=== PATIENT | female | born 1965 | race Caucasian/White ===

== ENCOUNTER → 2017-10-01 | Outpatient (CLI) | payer BC | LOC: M WHC 09:54 | DX: Z12.31 Encounter for screening mammogram for malignant neoplasm of breast (principal) | CPT/HCPCS: 77067 ==

== ENCOUNTER → 2018-10-20 | Outpatient (CLI) | payer BC ==
--- NOTE | 2018-10-20 12:41 | REPMRS ---
Patient History The patient states she had a clinical breast exam in 10/2018. Patient is postmenopausal. No known family history of cancer. No Hormone Replacement Therapy 3D TOMOSYNTHESIS WAS PERFORMED. Digital Woman Screen Mammo: October 20, 2018 - Exam #: [id number] Bilateral CC and MLO view(s) were taken. Technologist: Kaya Irving, Technologist Prior study comparison: October 01, 2017, digital woman screen mammo performed at [facility]. August 19, 2016, digital woman screen mammo performed at [facility] to [facility]. FINDINGS: The breast tissue is heterogeneously dense. This may lower the sensitivity of mammography. There has been no change in the appearance of the mammogram from the prior studies. There is a moderate amount of residual fibroglandular tissue which is fairly symmetric. There is no interval development of dominant mass, areas of architectural distortion, or clustered microcalcification typical of malignancy. Assessment: BI-RADS/ACR category 1 mammogram. Negative Mammogram. Recommendation Routine screening mammogram in 1 year (for women over age 40). This mammogram was interpreted with the aid of an FDA-approved computer-aided dectection system. Electronically Signed By: Sandro Rubin MD 10/20/18 [id number]
== END ==
LOC: M WHC 11:42
PROVIDERS: ATTEND Nurse Practitioner Family
DX: Z12.31 Encounter for screening mammogram for malignant neoplasm of breast (principal); Z78.0 Asymptomatic menopausal state

== ENCOUNTER → 2018-10-20 | Outpatient (REF) | payer BC ==
[2018-10-22 18:42] LABS: HPV HYBRID CAPTURE II Negative (Negative)
== END ==
LOC: M SFHCWAGY 11:55
PROVIDERS: ATTEND Nurse Practitioner Family
DX: Z12.4 Encounter for screening for malignant neoplasm of cervix (principal)
CPT/HCPCS: 87624; G0123

== ENCOUNTER → 2019-10-20 | Outpatient (CLI) | payer BC ==
--- NOTE | 2019-10-20 14:40 | REPMRS ---
Patient History The patient states she had a clinical breast exam in 2019. No known family history of cancer. No Hormone Replacement Therapy Digital Woman Screen Mammo: October 20, 2019 - Exam #: [id number] Bilateral CC and MLO view(s) were taken. Technologist: Edwige Fischer, Technologist Prior study comparison: October 20, 2018, bilateral digital woman screen mammo performed at [facility]. October 01, 2017, digital woman screen mammo performed at [facility]. August 19, 2016, digital woman screen mammo performed at [facility]. FINDINGS: The breast tissue is heterogeneously dense. This may lower the sensitivity of mammography. There is a moderate amount of heterogeneously dense fibroglandular tissue which is fairly symmetric. There is no interval development of dominant mass, architectural distortion, or grouped microcalcification typical of malignancy. There has been no change in the appearance of the mammogram from the prior studies. 3-D tomosynthesis shows no additional findings. Assessment: BI-RADS/ACR category 1 mammogram. Negative Mammogram. Recommendation Routine screening mammogram of both breasts in 1 year (for women over age 40). This patient's Lifetime Breast Cancer RIsk is estimated at 8.6 %. This mammogram was interpreted with the aid of an FDA-approved computer-aided dectection system. Electronically Signed By: David Alberto MD 10/20/19 0695
== END ==
LOC: M WHC 10:34
PROVIDERS: ATTEND Nurse Practitioner Family
DX: Z12.31 Encounter for screening mammogram for malignant neoplasm of breast (principal)

== ENCOUNTER → 2020-10-20 | Outpatient (CLI) | payer BC ==
--- NOTE | 2020-10-20 13:06 | REP ---
INDICATION: BREAST LUMP; N63.20 LT BREAST LUMP. Palpable lump in the upper-outer quadrant of the left breast is covered on clinician breast exam. Breast cancer screening. COMPARISON: Mammography October 20, 2019, October 20, 2018, and October 01, 2017. TECHNIQUE: Bilateral CC and MLO) view(s) were taken. A skin marker is affixed to the skin at the site of the palpable lump in the left breast for left-sided views. Magnified focal spot-compression CC mL and MLO views of the left breast are obtained as well. 3D tomography is carried out. Targeted left breast sonography is performed. FINDINGS: Scattered fibroglandular elements are seen bilaterally. No suspicious or dominant density is seen. No microcalcification or architectural distortion is seen. No worrisome skin change is appreciated. 3-D tomosynthesis shows no additional finding. No abnormality is noted at the site of the palpable lump in the left breast or elsewhere on either side on today's mammography. The Volpara volumetric breast density pattern is B. Targeted sonography: Targeted sonographic evaluation of the left breast is performed 1:00 to 2:00 in the region the palpable lump. Heterogeneous fibroglandular background echotexture is seen. No cyst, mass, acoustic shadowing or architectural distortion is seen by ultrasound.. IMPRESSION: BIRADS/ACR category 1 negative mammographic and left breast sonographic findings. This patient's Tyrer-Cuzick lifetime breast cancer risk assessment score is 8.4%. This mammogram was interpreted with the aid of an FDA-approved computer-aided detection system. The patient states she had a clinical breast exam in October of 2020. The patient letter being requested is M2. RECOMMENDATION: Clinical follow-up is advised. This negative report should not dissuade 1 from biopsy of a palpable lesion depending on his clinical characteristics. Repeat screening mammography recommended 1 year (for women over 40). <Electronically signed by David Alberto > 10/20/20 [id number]
== END ==
LOC: M WHC 10:33
PROVIDERS: ATTEND Nurse Practitioner Family
DX: N63.21 Unspecified lump in the left breast, upper outer quadrant (principal)
CPT/HCPCS: 76642; 77066; G0279

== ENCOUNTER → 2020-12-27 | Outpatient (CLI) | payer BC ==
[~2020-12-27] MED LIST: LEVO100T5 PO
[2020-12-27 13:59] VITALS: BP 140/86
--- NOTE | 2020-12-27 14:09 | ROOPDOC ---
[facility] Report Of Operation Report of Operation DATE OF PROCEDURE: 12/27/20 DIAGNOSIS: left breast palpable mass PROCEDURE: palpation and ultrasound guided biopsy of the left breast palpable mass with clip placement SURGEON: Juan Villa BLOOD LOSS: minimal COMPLICATIONS: none Lidocaine 1% LOT [id number] Expiration 08/2021 Sodium Bicarbonate 8.4% LOT [id number] Expiration 10/2021 Hydromark clip LOT [id number] Expiration 08/2023 SHAPE : 4 Bx device: BARD [id number] x10 cm LOT [id number] Expiration 10/2021 Informed consent was obtained. The most common risk and possible complications including bleeding, hematoma, bruising, infection, injury to surrounding structures were explained to the patient and the patient expressed understanding. Patient was placed on the bed in the supine position. Appropriate time out was done stating patients name, date of , and the procedure to be performed. Palpation was used to locate the mass at 2:00 3 CFN. No clear sonographic correlate was seen on sonography of this area. The left breast was prepped and draped in the usual fashion. The ultrasound was used to assure safe biopsy and to prevent injury to the lung. Plain Lidocaine 1% and 8.4% sodium bicarbonate 10:1 mix was used to anesthetize the skin, the biopsy site and tissues along the anticipated biopsy tract. Small skin incision was made with blade number 11. BARD Marquee 14G cannula with introducer ([id number]) was inserted through the incision and advanced under the ultrasound guidance to position immediately adjacent to the palpable lesion. Next, the introducer was removed and BARD Marquee 14G biopsy device was places in the cannula. Pre-biopsy imaging, and post-biopsy imaging were captured. Five good core biopsies were taken at various levels of the lesion. Specimen was placed in formaldehyde, labeled with appropriate biopsy site and patients name, and sent to pathology for evaluation. Next, the biopsy device was withdrawn and a clip introducer was inserted into the biopsy site via the cannula. SHAPE 4 Hydromark clip was deployed under sonographic guidance. Post-clip placement image was captured. Manual pressure over the biopsy cavity and tract was held after the clip introducer was withdrawn. No bleeding was noted upon removal of the pressure. Post-biopsy mammogram of the left breast was obtained and showed clip in expected position. Postprocedural dressing was placed. Patient tolerated procedure well. Discharge instructions were discussed with the patient and the patient expressed understanding. JUAN VILLA DO Dec 27, 2020 14:09
--- NOTE | 2020-12-27 15:00 | REP ---
INDICATION: N63.20 LT BREAST MASS,POST US GUIDED BIOPSY. Patient is status post ultrasound directed needle biopsy of a palpable lesion. There was no mammographic or sonographic target identified. COMPARISON: Comparison mammography October 20, 2020. TECHNIQUE: Craniocaudal and mediolateral views of the left breast are obtained after clip placement. This mammogram was interpreted with the aid of an FDA-approved computer-aided detection system. FINDINGS: CC and mL views of the left breast demonstrate a needle biopsy marker clip in the fairly superficial aspect middle 3rd of the left breast upper outer quadrant. There is some adjacent post I biopsy edema. No hematoma. IMPRESSION: Marker clip is seen in place in the upper-outer quadrant of the left breast. . RECOMMENDATION: None. <Electronically signed by David Alberto > 12/27/20 [id number]
--- NOTE | 2020-12-27 15:40 | REP ---
INDICATION: N63.20 LT BREAST MASS,US GUIDED BIOPSY. COMPARISON: None. TECHNIQUE: Sonographic guidance. FINDINGS: Sonographic guidance is provided to Dr. George performed ultrasound guided/palpation guided lump biopsy with marker clip placement. IMPRESSION: Procedural imaging. <Electronically signed by David Alberto > 12/27/20 [id number]
== END ==
LOC: M WHCPRO 08:04
PROVIDERS: ATTEND Surgery
DX: N63.20 Unspecified lump in the left breast, unspecified quadrant (principal)

== ENCOUNTER → 2021-01-15 | Outpatient (CLI) | payer BC ==
--- NOTE | 2021-01-15 15:52 | REP ---
INDICATION: R59.9 PALPABLE RT AXILLA LUMPH NODE ENLARGED COMPARISON: None available TECHNIQUE: Realtime grayscale and color ultrasound examination using linear high-frequency transducer. FINDINGS: Directed ultrasound examination of the right axillary region demonstrates normal subcutaneous tissues, and musculature. No abnormal fluid collection, mass or lesion identified. Three small normal appearing lymph nodes are identified measuring 12 x 7 x 10 mm, 7 x 5 x 6 mm, and 12 x 7 x 14 mm. IMPRESSION: Unremarkable examination with 3 normal appearing lymph nodes identified. <Electronically signed by Ho Schultz > 01/15/21 1001
== END ==
LOC: M WHC 08:56
PROVIDERS: ATTEND Surgery
DX: R59.9 Enlarged lymph nodes, unspecified (principal)

== ENCOUNTER → 2021-06-25 | Outpatient (CLI) | payer BC ==
--- NOTE | 2021-06-25 10:05 | REP ---
INDICATION: LEFT BREAST MASS 6 MON F/U 1:00 5 CFN. COMPARISON: 10/20/2020. TECHNIQUE: Real-time sonographic evaluation of left breast performed. FINDINGS: Real-time sonographic evaluation of left breast performed at 1 o'clock at the site of the prior biopsy. HydroMARK clip is seen at that location with no cystic or solid mass. IMPRESSION: BIRADS/ACR category 2, benign. HydroMARK clip seen at the site of the prior biopsy at the 1 o'clock position of the left breast. No cystic or solid mass is seen. RECOMMENDATION: None. <Electronically signed by Sandro Rubin > 06/25/21 1001
== END ==
LOC: M WHC 08:50
PROVIDERS: ATTEND Surgery
DX: N63.20 Unspecified lump in the left breast, unspecified quadrant (principal)

== ENCOUNTER → 2021-12-11 | Outpatient (CLI) | payer BC, SELFPAY | LOC: M WHC 13:44 | PROVIDERS: ATTEND Advanced Practice Midwife | DX: Z12.31 Encounter for screening mammogram for malignant neoplasm of breast (principal) ==

== ENCOUNTER → 2022-12-20 | Outpatient (CLI) | payer BC | LOC: M WHC 10:02 | PROVIDERS: ATTEND Obstetrics & Gynecology | DX: Z12.31 Encounter for screening mammogram for malignant neoplasm of breast (principal) ==

== ENCOUNTER → 2024-01-05 | Outpatient (REF) | payer OTHER | LOC: M PLALAB 10:53 | PROVIDERS: ATTEND Obstetrics & Gynecology | DX: Z12.4 Encounter for screening for malignant neoplasm of cervix (principal) | CPT/HCPCS: 87624; G0123 ==

== ENCOUNTER → 2024-01-05 | Outpatient (CLI) | payer BC, OTHER, SELFPAY | LOC: M WHC 08:27 | PROVIDERS: ATTEND Obstetrics & Gynecology | DX: Z12.31 Encounter for screening mammogram for malignant neoplasm of breast (principal); R92.323 Mammographic fibroglandular density, bilateral breasts ==

== ENCOUNTER → 2025-03-29 | Outpatient (REF) | payer OTHER ==
[2025-03-31 14:52] LABS: HPV APTIMA Not Detected (Not Detected)
== END ==
LOC: M PLALAB 10:57
PROVIDERS: ATTEND Nurse Practitioner Family
DX: Z12.4 Encounter for screening for malignant neoplasm of cervix (principal)
CPT/HCPCS: 87624; G0123

== ENCOUNTER → 2025-03-29 | Outpatient (CLI) | payer OTHER | LOC: M WHC 11:48 | PROVIDERS: ATTEND Obstetrics & Gynecology | DX: Z12.31 Encounter for screening mammogram for malignant neoplasm of breast (principal); R92.323 Mammographic fibroglandular density, bilateral breasts ==